=== PATIENT | male | born 2000 | race African-American/Black ===

== ENCOUNTER 2021-01-20 22:43 | Emergency (ER) | payer MEDICAID ==
[~2021-01-20] VITALS: Ht 172.7 cm; Wt 72.7 kg
[2021-01-20 22:55] VITALS: Ht 172.7 cm; Wt 72.7 kg
== END 2021-01-20 23:35 | disposition home or self-care (01) ==
LOC: D.ER 22:43
DX: R07.81 Pleurodynia (principal)